=== PATIENT | female | born 1990 | race Caucasian/White ===

== ENCOUNTER 2018-02-17 21:52 | Emergency (ER) | payer MEDICAID ==
[2018-02-18 00:04] LABS: URINE BLOOD (Dip) POC 2+ (NEGATIVE); URINE GLUCOSE (Dip) POC Negative (NEGATIVE); URINE KETONES (Dip) POC Negative (NEGATIVE); URINE LEUKOCYTE EST (Dip) POC 2+ (NEGATIVE); URINE NITRITE (Dip) POC Negative (NEGATIVE); URINE TOTAL PROTEIN POC 1+ (NEGATIVE)
[2018-02-18] MEDS: DIPHENHYDRAMINE 50 MG CAP PO (00:08)
[2018-02-18] MEDS: KETOROLAC 30 MG INJ IM (00:08)
[2018-02-18] MEDS: METOCLOPRAMIDE 10 MG TAB PO (00:08)
== END 2018-02-18 03:35 | disposition home or self-care (01) ==
LOC: FTE 21:52
DX: G44.219 Episodic tension-type headache, not intractable (principal)
CPT/HCPCS: 72040; 81003; 81025; 96372; 99284-25

== ENCOUNTER 2018-11-12 19:05 | Emergency (ER) | payer MEDICAID ==
[2018-11-12] MEDS: KETOROLAC 60 MG INJ IM (22:28)
== END 2018-11-12 23:53 | disposition home or self-care (01) ==
LOC: FTE 23:54
DX: R10.2 Pelvic and perineal pain (principal)
CPT/HCPCS: 76856; 81025; 96372; 99285-25